=== PATIENT | male | born 1955 | race Caucasian/White ===

== ENCOUNTER → 2018-10-22 13:12 | Outpatient (CLI) | payer OTHER ==
[2011-09-25 09:57] VITALS: BMI 31.3
[~2018-10-22 13:12] MED LIST: CO Q-10200 MG; COLACE100 MG PO; LISINOPRIL10 MG PO; LOW DOSE ASPIRI81 M1 PO; PSYLLIUM; TUMERIC PO; VITAMIN C 500500 MG; [UNRECOGNIZED DRUG - OTHER]; [UNRECOGNIZED DRUG - OTHER]
[2018-10-23 11:05] VITALS: BMI 30.4
== END | disposition home or self-care (01) ==
LOC: D.CT 13:12
DX: R10.84 Generalized abdominal pain (principal)

== ENCOUNTER 2018-10-22 16:14 | Inpatient (IN) | payer OTHER ==
[~2018-10-22] VITALS: Ht 172.7 cm; Wt 90.7 kg
[2018-10-22] MEDS ORDERED: LISINOPRIL10 MG PO (16:33)
[2018-10-22] MEDS ORDERED: LOW DOSE ASPIRI81 M1 PO (16:35)
[2018-10-22 17:14] LABS: BASOPHILS 0.1 % (0-2); EOSINOPHILS 0 % (0-7); HEMOGLOBIN 17.5 g/dL (13.5-17.5); IMMATURE GRANULOCYTES 0.2 % (0-5); LYMPHOCYTES 12.7 % (15-50); MCHC 35.7 g/dL (31.0-37.0); MCV 92.5 fL (80.0-100.0); MEAN PLATELET VOLUME 8.7 fL (7.4-10.4); MONOCYTES 8.4 % (2-11); NEUTROPHILS 78.6 % (40-80); PLATELET COUNT 199 10x3/uL (130-400); RDW 12.1 % (11.5-14.5); WBC 9.1 10x3/uL (4.8-10.8)
[2018-10-22] MEDS ORDERED: [UNRECOGNIZED DRUG - OTHER] (17:22)
[2018-10-22] MEDS ORDERED: TUMERIC PO (17:24)
[2018-10-22] MEDS ORDERED: [UNRECOGNIZED DRUG - OTHER] (17:25)
[2018-10-22] MEDS ORDERED: CO Q-10200 MG (17:27)
[2018-10-22] MEDS ORDERED: VITAMIN C 500500 MG (17:27)
[2018-10-22] MEDS ORDERED: PSYLLIUM (17:29)
[2018-10-22 17:32] LABS: ALBUMIN 4.1 g/dL (3.4-5.0); ALKALINE PHOSPHATASE 59 U/L (46-116); ALT (SGPT) 28 U/L (10-68); BILIRUBIN - TOTAL 1.06 mg/dL (0.2-1.3); CALC OSMOLALITY 275 mosm/kg (275-300); CALCIUM 9.1 mg/dL (8.5-10.1); CARBON DIOXIDE 26.1 mmol/L (21.0-32.0); CHLORIDE - SERUM 99 mmol/L (98-107); CREATININE - SERUM 0.9 mg/dL (0.6-1.3); GLUCOSE 110 mg/dL (74-106); POTASSIUM - SERUM 4.1 mmol/L (3.5-5.1); PROTEIN - SERUM 7.6 g/dL (6.4-8.2); SODIUM 136 mmol/L (136-145); UREA NITROGEN 20 mg/dL (7-18); eGFR NON AFRICAN AMERICAN > 90 mL/min (90-120)
[2018-10-22 19:12] VITALS: BP 126/82; BMI 30.4
[2018-10-23] VITALS: BP 128/75
[2018-10-23 04:00] VITALS: BP 129/78
[2018-10-23 05:04] LABS: APPEARANCE CLEAR (CLEAR); BILIRUBIN NEGATIVE (NEGATIVE); COLOR YELLOW (YELLOW); GLUCOSE NEGATIVE (NEGATIVE); KETONE MODERATE mg/dL (NEGATIVE); NITRITE NEGATIVE (NEGATIVE); PROTEIN NEGATIVE (NEGATIVE); SPECIFIC GRAVITY 1.015 (1.005-1.020); UROBILINOGEN NORMAL (NORMAL)
[2018-10-23 06:15] LABS: BASOPHILS 0.1 % (0-2); CALC OSMOLALITY 279 mosm/kg (275-300); CALCIUM 8.3 mg/dL (8.5-10.1); CARBON DIOXIDE 25.1 mmol/L (21.0-32.0); CHLORIDE - SERUM 102 mmol/L (98-107); CREATININE - SERUM 0.8 mg/dL (0.6-1.3); EOSINOPHILS 0 % (0-7); GLUCOSE 113 mg/dL (74-106); HEMATOCRIT 44.6 % (42.0-54.0); HEMOGLOBIN 15.4 g/dL (13.5-17.5); IMMATURE GRANULOCYTES 0.1 % (0-5); LYMPHOCYTES 13.2 % (15-50); MCH 32.3 pg (26.0-34.0); MCHC 34.5 g/dL (31.0-37.0); MCV 93.5 fL (80.0-100.0); MONOCYTES 9.8 % (2-11); NEUTROPHILS 76.8 % (40-80); PLATELET COUNT 199 10x3/uL (130-400); POTASSIUM - SERUM 3.8 mmol/L (3.5-5.1); RBC 4.77 10x6/uL (4.20-6.10); RDW 12.2 % (11.5-14.5); SODIUM 137 mmol/L (136-145); WBC 7.9 10x3/uL (4.8-10.8); eGFR NON AFRICAN AMERICAN > 90 mL/min (90-120)
[2018-10-23 06:20] LABS: UREA NITROGEN 27 mg/dL (7-18)
[2018-10-23 08:49] VITALS: BP 133/81
[2018-10-23 11:05] VITALS: Ht 172.7 cm; Wt 90.7 kg
[2018-10-23 12:23] VITALS: BP 124/78; BP 142/83
[2018-10-23 17:00] VITALS: BP 128/76
[2018-10-23 19:54] VITALS: BP 113/69
[2018-10-24] VITALS: BP 102/64
[2018-10-24 04:00] VITALS: BP 115/72
[2018-10-24 04:53] LABS: BASOPHILS 0.7 % (0-2); EOSINOPHILS 0.9 % (0-7); HEMATOCRIT 41.2 % (42.0-54.0); HEMOGLOBIN 14.2 g/dL (13.5-17.5); IMMATURE GRANULOCYTES 0.2 % (0-5); LYMPHOCYTES 24.5 % (15-50); MCH 32.7 pg (26.0-34.0); MCHC 34.5 g/dL (31.0-37.0); MCV 94.9 fL (80.0-100.0); MEAN PLATELET VOLUME 8.9 fL (7.4-10.4); MONOCYTES 13.5 % (2-11); NEUTROPHILS 60.2 % (40-80); PLATELET COUNT 155 10x3/uL (130-400); RBC 4.34 10x6/uL (4.20-6.10); RDW 12.1 % (11.5-14.5); WBC 4.5 10x3/uL (4.8-10.8)
[2018-10-24 04:58] LABS: CALC OSMOLALITY 282 mosm/kg (275-300); CALCIUM 7.8 mg/dL (8.5-10.1); CHLORIDE - SERUM 107 mmol/L (98-107); CREATININE - SERUM 0.8 mg/dL (0.6-1.3); GLUCOSE 101 mg/dL (74-106); POTASSIUM - SERUM 3.9 mmol/L (3.5-5.1); SODIUM 140 mmol/L (136-145); UREA NITROGEN 24 mg/dL (7-18); eGFR NON AFRICAN AMERICAN > 90 mL/min (90-120)
[2018-10-24 08:45] VITALS: BP 120/73
[2018-10-24 11:53] VITALS: BP 120/73
[2018-10-24 15:33] VITALS: BP 128/70
[2018-10-24 19:38] VITALS: BP 126/79
[2018-10-25] VITALS: BP 104/65
[2018-10-25 04:00] VITALS: BP 119/74
[2018-10-25 06:15] LABS: BASOPHILS 0.4 % (0-2); EOSINOPHILS 2.5 % (0-7); HEMATOCRIT 39.2 % (42.0-54.0); HEMOGLOBIN 13.8 g/dL (13.5-17.5); IMMATURE GRANULOCYTES 0.2 % (0-5); LYMPHOCYTES 24.2 % (15-50); MCH 32.5 pg (26.0-34.0); MCHC 35.2 g/dL (31.0-37.0); MEAN PLATELET VOLUME 8.9 fL (7.4-10.4); MONOCYTES 14.3 % (2-11); NEUTROPHILS 58.4 % (40-80); PLATELET COUNT 158 10x3/uL (130-400); RBC 4.25 10x6/uL (4.20-6.10); RDW 11.9 % (11.5-14.5); WBC 4.8 10x3/uL (4.8-10.8)
[2018-10-25 06:27] LABS: CALC OSMOLALITY 278 mosm/kg (275-300); CALCIUM 7.3 mg/dL (8.5-10.1); CHLORIDE - SERUM 107 mmol/L (98-107); CREATININE - SERUM 0.7 mg/dL (0.6-1.3); GLUCOSE 85 mg/dL (74-106); POTASSIUM - SERUM 3.7 mmol/L (3.5-5.1); SODIUM 140 mmol/L (136-145); eGFR NON AFRICAN AMERICAN > 90 mL/min (90-120)
[2018-10-25 06:28] LABS: MCV 92.2 fL (80.0-100.0)
[2018-10-25 06:30] LABS: UREA NITROGEN 15 mg/dL (7-18)
[2018-10-25 08:26] VITALS: BP 127/85
[2018-10-25 11:57] VITALS: BP 142/95
[2018-10-25] MEDS ORDERED: COLACE100 MG PO (12:37)
== END 2018-10-25 14:02 | disposition home or self-care (01) | DRG 390 ==
LOC: D.MS 16:14
PROVIDERS: Family Medicine; Internal Medicine Nephrology
DX: K56.609 Unspecified intestinal obstruction, unspecified as to partial versus complete obstruction (principal); I10 Essential (primary) hypertension; E78.5 Hyperlipidemia, unspecified; I25.10 Atherosclerotic heart disease of native coronary artery without angina pectoris

== ENCOUNTER 2019-12-09 07:00 | Inpatient (IN) | payer OTHER ==
[2019-12-09] VITALS (7 sets, daily range): BP systolic 98–154; BP diastolic 69–88; BMI 30.4
[~2019-12-09] VITALS: Ht 172.7 cm; Wt 90.7 kg
[~2019-12-09 07:00] MED LIST changes: -[UNRECOGNIZED DRUG - OTHER]; +[UNRECOGNIZED DRUG - OTHER] PO
[2019-12-09] MEDS ORDERED: CRESTOR10 MG PO (07:11)
[2019-12-09] MEDS ORDERED: FISH OIL 1,0001 CA1 PO (07:12)
--- NOTE | 2019-12-09 07:30 | NUR ---
URINE SPEC COLLECTED, LABELED AT BS AND SENT TO LAB
[2019-12-09 07:41] LABS: APPEARANCE CLEAR (CLEAR); BILIRUBIN NEGATIVE (NEGATIVE); COLOR YELLOW (YELLOW); GLUCOSE NEGATIVE (NEGATIVE); KETONE SMALL mg/dL (NEGATIVE); NITRITE NEGATIVE (NEGATIVE); PROTEIN NEGATIVE (NEGATIVE); UROBILINOGEN NORMAL (NORMAL)
[2019-12-09 07:43] LABS: BASOPHILS 0.1 % (0-2); EOSINOPHILS 0 % (0-7); HEMATOCRIT 49.5 % (42.0-54.0); HEMOGLOBIN 17.7 g/dL (13.5-17.5); IMMATURE GRANULOCYTES 0.2 % (0-5); LYMPHOCYTES 6.5 % (15-50); MCH 33.4 pg (26.0-34.0); MCHC 35.8 g/dL (31.0-37.0); MCV 93.4 fL (80.0-100.0); MONOCYTES 5.4 % (2-11); NEUTROPHILS 87.8 % (40-80); PLATELET COUNT 229 10x3/uL (130-400); RDW 12.3 % (11.5-14.5); WBC 13.1 10x3/uL (4.8-10.8)
[2019-12-09 07:46] LABS: CALC OSMOLALITY 282 mosm/kg (275-300); CALCIUM 9.5 mg/dL (8.5-10.1); CARBON DIOXIDE 25.8 mmol/L (21.0-32.0); CHLORIDE - SERUM 100 mmol/L (98-107); INR 0.95 (0.85-1.17); PROTIME 12.7 SECONDS (11.6-15.0); SODIUM 137 mmol/L (136-145); UREA NITROGEN 27 mg/dL (7-18); eGFR NON AFRICAN AMERICAN 80 mL/min (90-120)
[2019-12-09 07:55] LABS: ALBUMIN 4.3 g/dL (3.4-5.0); ALKALINE PHOSPHATASE 64 U/L (46-116); ALT (SGPT) 55 U/L (10-68); AMYLASE - SERUM 63 U/L (25-115); BILIRUBIN - TOTAL 1.07 mg/dL (0.2-1.3); CREATINE KINASE 99 UL (21-232); LIPASE 76 U/L (73-393); MAGNESIUM - SERUM 2.1 mg/dL (1.8-2.4); PROTEIN - SERUM 8.4 g/dL (6.4-8.2); TROPONIN-I < 0.017 ng/mL (0.000-0.060)
[2019-12-09 07:56] LABS: GLUCOSE 176 mg/dL (74-106); POTASSIUM - SERUM 4.8 mmol/L (3.5-5.1)
--- NOTE | 2019-12-09 11:50 | NUR ---
ATTEMPTED TO CALL REPORT X 1 AT THIS TIME. WAS TOLD TO CALL BACK IN APPROX 10 MINUTES SO THAT NURSE COULD TAKE REPORT.
--- NOTE | 2019-12-09 12:31 | NUR ---
RECEIVED PATIENT FROM ER BY STRETCHER, AMBULATED UP AD OSMANY TO BED IN ROOM. ALERT AND ORIENTED. FAMILY AT BEDSIDE. NO C/O PAIN. NO S/S OF ACUTE DISTRESS NOTED. VITALS STABLE. IV TO LEFT AC, LR INFUSING @ 100ML/HR. SITE PATENT WITHOUT REDNESS OR SWELLING. DENIES ANY NEEDS AT THIS TIME. CALL LIGHT IN REACH. WILL CONTINUE TO MONITOR.
--- NOTE | 2019-12-09 14:19 | MORECARE ---
CASE MANAGEMENT DISCHARGE SUMMARY PATIENT: IKER WALKER UNIT: [id number] ADM DATE: 12/09/19 AGE: 64 : 57 SEX: M ROOM/BED: D.2238 AUTHOR: EUGENIEDOC PHYSICIAN: REFERRING PHYSICIAN: MARY BRANHAM MD DATE OF SERVICE: 12/09/19 Discharge Plan Patient Name: IKER WALKER Facility: [facility]:[place] : 1955 Planned Disposition: Home Anticipated Discharge Date: 12/13/19 Discharge Date: Expected LOS: 4 Initial Reviewer: [email or web address] Initial Review Date: 12/09/2019 Generated: 12/09/19 3:19 pm DCP- Discharge Planning Updated by [email or web address]: Kinga Jimenes on 12/09/19 1:[address] DC PLAN: Return home independently with his . ANTICIPATED DC NEEDS: denied known dc needs at time of assessment in the ER. CM met with patient and his to complete initial dc planning assessment. CM educated patient on the CM role and verbal consent given by patient to complete assessment. CM verified patient's address, phone number, and emergency contact phone numbers. Patient lives at home independently with his . At discharge patient plans to return home with his and feels this is a safe discharge. CM discussed availability of home health, rehab services, and medical equipment. Patient denied known discharge needs at this time. Transportation provider at discharge will be his . CM will continue to follow and will assist as needed with dc plans/needs. Kinga Jimenes RN, [facility] DCPIA - Discharge Planning Initial Assessment Updated by [email or web address]: Kinga Jimenes on 12/09/19 2:11 pm * Is the patient Alert and Oriented? Yes * How many steps to enter\exit or inside your home? None * PCP Dr. Zapata * Pharmacy [facility] on [place] * Preadmission Environment Home with Family * ADLs Independent * Equipment Bedside Commode Cane Rolling Walker Wheelchair * Other Equipment Has equipment from his mother. * List name and contact numbers for known caregivers / representatives who currently or will assist patient after discharge: Ingrid Walker - - [phone] * Verbal permission to speak to the caregivers and representatives has been obtained from the patient. Yes * Community resources currently utilized None * Additional services required to return to the preadmission environment? No * Can the patient safely return to the preadmission environment? Yes * Has this patient been hospitalized within the prior 30 days at any hospital? No Patient Name: IKER WALKER Page [id number] at 1419 All edits/amendments must be made on the electronic document DICTATION DATE: 12/09/191418 GRAPPLE OPERATOR: ARELIS 12/09/191418 RPT#: [id number] DC DATE: STATUS: ADM IN [facility] [address] [place] [address] END OF REPORT
--- NOTE | 2019-12-09 18:13 | NUR ---
ALERT AND ORIENTED. RESTING IN BED. NO C/O PAIN. NO S/S OF ACUTE DISTRESS NOTED. DENIES ANY NEEDS AT THIS TIME. CALL LIGHT IN REACH. WILL CONTINUE TO MONITOR.
--- NOTE | 2019-12-09 18:40 | NUR ---
IV TO LEFT FOREARM INFILTRATED. DISCONTINUED CATHETER TIP INTACT. RESITED IV TO LEFT HAND, 22 GA X1 STICK. GOOD BLOOD RETURN.
[2019-12-10 00:41] VITALS: BP 116/73
[2019-12-10 04:34] VITALS: BP 126/84
[2019-12-10 06:31] LABS: BASOPHILS 0 % (0-2); EOSINOPHILS 0 % (0-7); HEMATOCRIT 45.3 % (42.0-54.0); HEMOGLOBIN 15.8 g/dL (13.5-17.5); IMMATURE GRANULOCYTES 0.2 % (0-5); LYMPHOCYTES 16.7 % (15-50); MCHC 34.9 g/dL (31.0-37.0); MCV 94.6 fL (80.0-100.0); MEAN PLATELET VOLUME 8.8 fL (7.4-10.4); MONOCYTES 15.9 % (2-11); NEUTROPHILS 67.2 % (40-80); RBC 4.79 10x6/uL (4.20-6.10); RDW 12.5 % (11.5-14.5)
[2019-12-10 06:44] LABS: PLATELET COUNT 183 10x3/uL (130-400)
--- NOTE | 2019-12-10 07:05 | NUR ---
ALERT AND ORIENTED, SITTING UP IN CHAIR. NO C/O PAIN. NO S/S OF ACUTE DISTRESS NOTED. BS HYPOACTIVE, ABDOMEN DISTENDED AND FIRM. IV TO LEFT HAND, D5 LR INFUSING @ 100ML/HR. SITE PATENT WITHOUT REDNESS OR SWELLING. DENIES ANY NEEDS AT THIS TIME. CALL LIGHT IN REACH. WILL CONTINUE TO MONITOR.
[2019-12-10 07:07] LABS: ALBUMIN 3.4 g/dL (3.4-5.0); ALKALINE PHOSPHATASE 45 U/L (46-116); BILIRUBIN - TOTAL 0.96 mg/dL (0.2-1.3); CALC OSMOLALITY 283 mosm/kg (275-300); CALCIUM 8.5 mg/dL (8.5-10.1); CARBON DIOXIDE 26.5 mmol/L (21.0-32.0); CHLORIDE - SERUM 103 mmol/L (98-107); GLUCOSE 138 mg/dL (74-106); PROTEIN - SERUM 6.7 g/dL (6.4-8.2); SODIUM 139 mmol/L (136-145); UREA NITROGEN 25 mg/dL (7-18); eGFR NON AFRICAN AMERICAN 80 mL/min (90-120)
[2019-12-10 07:09] LABS: ALT (SGPT) 36 U/L (10-68)
[2019-12-10 08:53] VITALS: BP 127/64
[2019-12-10 12:27] VITALS: BMI 30.4
--- NOTE | 2019-12-10 13:00 | NUR ---
NG TUBE PLACED TO RIGHT NARE, L/I/S. KUB ORDERED TO CONFIRM PLACEMENT. GREEN CONTENTS IN SUCTION CANISTER. 1150ML IN CANISTER. CHANGED TO SECOND CANISTER.
[2019-12-10 13:01] VITALS: BP 127/57
--- NOTE | 2019-12-10 13:26 | NUR ---
I have reviewed this patient and I concur with the Shift Assessment completed by the Licensed Practical Nurse today this shift.
[2019-12-10 17:02] VITALS: BP 130/67
--- NOTE | 2019-12-10 18:37 | NUR ---
ALERT AND ORIENTED, RESTING IN BED. FAMILY AT BEDSIDE. DENIES ANY NEEDS AT THIS TIME. CALL LIGHT IN REACH. WILL CONTINUE TO MONITOR.
[2019-12-10 20:00] VITALS: BP 118/65
[2019-12-10 22:23] VITALS: Ht 172.7 cm; Wt 90.7 kg
[2019-12-11 04:00] VITALS: BP 122/65
[2019-12-11 07:17] LABS: BASOPHILS 0.3 % (0-2); EOSINOPHILS 0.3 % (0-7); HEMOGLOBIN 14.8 g/dL (13.5-17.5); LYMPHOCYTES 21.9 % (15-50); MCH 32.9 pg (26.0-34.0); MCHC 34.4 g/dL (31.0-37.0); MCV 95.6 fL (80.0-100.0); MEAN PLATELET VOLUME 8.9 fL (7.4-10.4); MONOCYTES 14.7 % (2-11); NEUTROPHILS 62.8 % (40-80); PLATELET COUNT 175 10x3/uL (130-400); RDW 12.4 % (11.5-14.5); WBC 5.8 10x3/uL (4.8-10.8)
[2019-12-11 07:38] LABS: ALBUMIN 2.9 g/dL (3.4-5.0); ALKALINE PHOSPHATASE 41 U/L (30-120); ALT (SGPT) 30 U/L (10-68); BILIRUBIN - TOTAL 0.84 mg/dL (0.2-1.3); CALC OSMOLALITY 280 mosm/kg (275-300); CALCIUM 7.7 mg/dL (8.5-10.1); CARBON DIOXIDE 24.3 mmol/L (21.0-32.0); CHLORIDE - SERUM 106 mmol/L (98-107); CREATININE - SERUM 0.9 mg/dL (0.6-1.3); GLUCOSE 111 mg/dL (74-106); MAGNESIUM - SERUM 1.8 mg/dL (1.8-2.4); PHOSPHOROUS 2.8 mg/dL (2.5-4.9); POTASSIUM - SERUM 3.8 mmol/L (3.5-5.1); PROTEIN - SERUM 6.1 g/dL (6.4-8.2); SODIUM 138 mmol/L (136-145); UREA NITROGEN 23 mg/dL (7-18); eGFR NON AFRICAN AMERICAN > 90 mL/min (90-120)
--- NOTE | 2019-12-11 09:14 | NUR ---
PT ALERT X 4. NG TUBE TO RIGHT NARE, CLAMPED FOR IMAGING. BREATH SOUNDS CLEAR BILAT. ABDOMEN DISTENDED AND FIRM, BOWEL SOUNDS ACTIVE TO ALL LIANG. IV TO LEFT HAND PATENT, DRESSING CDI. PT REPORTING NO PAIN AT THIS TIME. BED LOW, CALL LIGHT IN REACH. NO OTHER NEEDS AT THIS TIME.
[2019-12-11 10:05] VITALS: BP 141/75
[2019-12-11 12:39] VITALS: BP 146/83
[2019-12-11 16:33] VITALS: BP 152/85
[2019-12-11 19:30] VITALS: BP 142/70
--- NOTE | 2019-12-11 22:00 | NUR ---
DIET ADVANCED TOLERATED. PT EATING CHICKEN NOODLE SOUP. TOLERATED WELL. ORDERED REGULAR DIET WITH EGGS AND YOGURT FOR BREAKFAST. NO OTHER NEEDS. WILL CONTINUE TO MONITOR.
[2019-12-12 00:30] VITALS: BP 108/66
[2019-12-12 04:30] VITALS: BP 129/89
[2019-12-12 06:35] LABS: BASOPHILS 0.2 % (0-2); EOSINOPHILS 1.6 % (0-7); HEMATOCRIT 42.6 % (42.0-54.0); HEMOGLOBIN 14.7 g/dL (13.5-17.5); IMMATURE GRANULOCYTES 0.3 % (0-5); LYMPHOCYTES 24.9 % (15-50); MCH 32.6 pg (26.0-34.0); MCHC 34.5 g/dL (31.0-37.0); MCV 94.5 fL (80.0-100.0); MEAN PLATELET VOLUME 8.5 fL (7.4-10.4); MONOCYTES 11.1 % (2-11); NEUTROPHILS 61.9 % (40-80); PLATELET COUNT 160 10x3/uL (130-400); RBC 4.51 10x6/uL (4.20-6.10); RDW 12.1 % (11.5-14.5); WBC 6.2 10x3/uL (4.8-10.8)
[2019-12-12 06:48] LABS: ALBUMIN 2.8 g/dL (3.4-5.0); ALKALINE PHOSPHATASE 41 U/L (30-120); ALT (SGPT) 25 U/L (10-68); BILIRUBIN - TOTAL 0.91 mg/dL (0.2-1.3); CALC OSMOLALITY 279 mosm/kg (275-300); CALCIUM 7.8 mg/dL (8.5-10.1); CARBON DIOXIDE 28.5 mmol/L (21.0-32.0); CHLORIDE - SERUM 106 mmol/L (98-107); CREATININE - SERUM 0.9 mg/dL (0.6-1.3); GLUCOSE 94 mg/dL (74-106); POTASSIUM - SERUM 3.7 mmol/L (3.5-5.1); SODIUM 140 mmol/L (136-145); eGFR NON AFRICAN AMERICAN > 90 mL/min (90-120)
[2019-12-12 06:49] LABS: UREA NITROGEN 16 mg/dL (7-18)
[2019-12-12 08:16] VITALS: BP 122/80
--- NOTE | 2019-12-12 09:29 | NUR ---
PT ALERT X 4. BREATH SOUNDS CLEAR BILAT. IV TO LEFT HAND, PATENT, DRESSING CDI. PT REPORTING NO PAIN AT THIS TIME. BED LOW, CALL LIGHT IN REACH. NO OTHER NEEDS AT THIS TIME.
[2019-12-12 13:40] VITALS: BP 126/90
--- NOTE | 2019-12-12 16:05 | NUR ---
DISCHARGE PAPERWORK SIGNED, ALL QUESTIONS ANSWERED. IV TO LEFT HAND DC'D, TIP INTACT. PT REQUESTED TO AMBULATE OUT.
--- NOTE | 2019-12-13 09:08 | MORECARE ---
CASE MANAGEMENT DISCHARGE SUMMARY PATIENT: IKER WALKER UNIT: [id number] ADM DATE: 12/09/19 AGE: 64 : 57 SEX: M ROOM/BED: D.2238 AUTHOR: EUGENIEDOC PHYSICIAN: REFERRING PHYSICIAN: MARY BRANHAM MD DATE OF SERVICE: 12/13/19 Discharge Plan Patient Name: IKER WALKER Facility: [facility]:[place] : 1955 Planned Disposition: Home Anticipated Discharge Date: 12/13/19 Discharge Date: 12/12/2019 Expected LOS: 4 Initial Reviewer: [email or web address] Initial Review Date: 12/09/2019 Generated: 12/13/19 10:08 am DCP- Discharge Planning Updated by [email or web address]: Kinga Jimenes on 12/09/19 1:[address] DC PLAN: Return home independently with his . ANTICIPATED DC NEEDS: denied known dc needs at time of assessment in the ER. CM met with patient and his to complete initial dc planning assessment. CM educated patient on the CM role and verbal consent given by patient to complete assessment. CM verified patient's address, phone number, and emergency contact phone numbers. Patient lives at home independently with his . At discharge patient plans to return home with his and feels this is a safe discharge. CM discussed availability of home health, rehab services, and medical equipment. Patient denied known discharge needs at this time. Transportation provider at discharge will be his . CM will continue to follow and will assist as needed with dc plans/needs. Kinga Jimenes RN, [facility] DCPIA - Discharge Planning Initial Assessment Updated by [id number]: Kinga Jimenes on 12/09/19 2:11 pm * Is the patient Alert and Oriented? Yes * How many steps to enter\exit or inside your home? None * PCP Dr. Zapata * Pharmacy [facility] on [place] * Preadmission Environment Home with Family * ADLs Independent * Equipment Bedside Commode Cane Rolling Walker Wheelchair * Other Equipment Has equipment from his mother. * List name and contact numbers for known caregivers / representatives who currently or will assist patient after discharge: Ingrid Walker - - [phone] * Verbal permission to speak to the caregivers and representatives has been obtained from the patient. Yes * Community resources currently utilized None * Additional services required to return to the preadmission environment? No * Can the patient safely return to the preadmission environment? Yes * Has this patient been hospitalized within the prior 30 days at any hospital? No Last DP export: 12/09/19 1:19 p Patient Name: IKER AWLKER Page [id number] at 0908 All edits/amendments must be made on the electronic document DICTATION DATE: 12/13/19907 TOP TRIMMER: DM 12/13/19907 RPT#: [id number] DC DATE:12/12/19 STATUS: DIS IN [facility] [address] [place] [address] END OF REPORT
== END 2019-12-12 16:06 | disposition home or self-care (01) | DRG 390 ==
LOC: D.ER 07:00 → D.MS 11:20
PROVIDERS: Emergency Medicine; Family Medicine; Surgery; ADMIT Family Medicine; ATTEND Family Medicine
DX: K56.50 Intestinal adhesions [bands], unspecified as to partial versus complete obstruction (principal); K52.9 Noninfective gastroenteritis and colitis, unspecified; K56.7 Ileus, unspecified; E86.0 Dehydration; I10 Essential (primary) hypertension; I25.10 Atherosclerotic heart disease of native coronary artery without angina pectoris; E78.5 Hyperlipidemia, unspecified; K40.90 Unilateral inguinal hernia, without obstruction or gangrene, not specified as recurrent

== ENCOUNTER 2020-07-22 09:37 | Inpatient (IN) | payer OTHER ==
[2020-07-22] VITALS (8 sets, daily range): BP systolic 139–169; BP diastolic 69–96; BMI 30.4
[~2020-07-22] VITALS: Ht 172.7 cm; Wt 90.7 kg
[~2020-07-22 09:37] MED LIST changes: +CRESTOR10 MG PO; +FISH OIL 1,0001 CA1 PO
--- NOTE | 2020-07-22 09:45 | NUR ---
PT AMBULATED TO RESTROOM INDEPENDENTLY AND PROVIDED URINE SAMPLE.
[2020-07-22 09:59] LABS: BASOPHILS 0.1 % (0-2); EOSINOPHILS 0 % (0-7); HEMOGLOBIN 17.2 g/dL (13.5-17.5); IMMATURE GRANULOCYTES 0.2 % (0-5); LYMPHOCYTES 3.9 % (15-50); MCH 33.5 pg (26.0-34.0); MCHC 35.1 g/dL (31.0-37.0); MCV 95.5 fL (80.0-100.0); MEAN PLATELET VOLUME 8.9 fL (7.4-10.4); MONOCYTES 7.3 % (2-11); NEUTROPHILS 88.5 % (40-80); RBC 5.13 10x6/uL (4.20-6.10); RDW 12.6 % (11.5-14.5); WBC 16.7 10x3/uL (4.8-10.8)
[2020-07-22 10:05] LABS: PLATELET COUNT 205 10x3/uL (130-400)
[2020-07-22 10:10] LABS: BILIRUBIN NEGATIVE (NEGATIVE); KETONE SMALL mg/dL (NEGATIVE); NITRITE NEGATIVE (NEGATIVE); UROBILINOGEN NORMAL (NORMAL)
[2020-07-22 10:11] LABS: BACTERIA FEW /hpf (NONE SEEN); GRANULAR CAST OCC /lpf (NONE SEEN); WHITE CELLS - URINE 0-5 /hpf (0-5)
[2020-07-22 10:56] LABS: CALC OSMOLALITY 285 mosm/kg (275-300); CALCIUM 9.4 mg/dL (8.5-10.1); CARBON DIOXIDE 22.4 mmol/L (21.0-32.0); CHLORIDE - SERUM 103 mmol/L (98-107); CREATININE - SERUM 1.2 mg/dL (0.6-1.3); POTASSIUM - SERUM 4.3 mmol/L (3.5-5.1); SODIUM 140 mmol/L (136-145); UREA NITROGEN 21 mg/dL (7-18); eGFR NON AFRICAN AMERICAN 65 mL/min (90-120)
[2020-07-22 10:57] LABS: GLUCOSE 162 mg/dL (74-106)
[2020-07-22 11:05] LABS: ALBUMIN 4.5 g/dL (3.4-5.0); ALKALINE PHOSPHATASE 63 U/L (30-120); ALT (SGPT) 45 U/L (10-68); AMYLASE - SERUM 66 U/L (25-115); BILIRUBIN - TOTAL 0.92 mg/dL (0.2-1.3); LIPASE 56 U/L (73-393); PROTEIN - SERUM 7.9 g/dL (6.4-8.2)
[2020-07-22 11:08] LABS: TROPONIN-I < 0.017 ng/mL (0.000-0.060)
--- NOTE | 2020-07-22 12:40 | NUR ---
ADVANCED NG TUBE APPROXIMATELY 4 CM PER EDP MERCED.
--- NOTE | 2020-07-22 14:00 | NUR ---
PT SUCTION CANNISTER EMPTIED APPROXIMATELY 1200 CC YELLOW/BROWN GASTRIC CONTENTS NOTED.
--- NOTE | 2020-07-22 15:24 | NUR ---
pt laying in bed. no distress noted. color wnl for race. respirations are even and unlabored. will continue to monitor.
[2020-07-22 18:09] LABS: BASOPHILS 0.1 % (0-2); EOSINOPHILS 0 % (0-7); HEMATOCRIT 46.5 % (42.0-54.0); HEMOGLOBIN 16.1 g/dL (13.5-17.5); IMMATURE GRANULOCYTES 0.2 % (0-5); LYMPHOCYTES 6.5 % (15-50); MCH 33.5 pg (26.0-34.0); MCHC 34.6 g/dL (31.0-37.0); MCV 96.9 fL (80.0-100.0); MEAN PLATELET VOLUME 8.9 fL (7.4-10.4); MONOCYTES 9.9 % (2-11); NEUTROPHILS 83.3 % (40-80); PLATELET COUNT 197 10x3/uL (130-400)
[2020-07-22 18:10] LABS: WBC 11.1 10x3/uL (4.8-10.8)
[2020-07-22 18:19] LABS: ANION GAP 16.5 mmol/L (8-16); CARBON DIOXIDE 24.6 mmol/L (21.0-32.0); CREATININE - SERUM 1.3 mg/dL (0.6-1.3); POTASSIUM - SERUM 4.1 mmol/L (3.5-5.1)
[2020-07-22 18:25] LABS: ALBUMIN 3.9 g/dL (3.4-5.0); BILIRUBIN - TOTAL 1.17 mg/dL (0.2-1.3); PROTEIN - SERUM 7.3 g/dL (6.4-8.2)
--- NOTE | 2020-07-22 19:00 | NUR ---
PT ARRIVED ON UNIT VIA STRETCHER ESCORTED BY ER STAFF AND SPOUSE. NG TUBE TO LEFT NARE CONNECTED TO LIS. IV TO RIGHT HAND PATENT WITH NS INFUSING AT 100 ML/HR.
--- NOTE | 2020-07-22 23:00 | NUR ---
ADMISSION ASSESSMENT AND HISTORY COMPLETE. MED REC RECONCILLIATION COMPLETE.
[2020-07-23] VITALS: BP 127/79
[2020-07-23 04:00] VITALS: BP 135/81
[2020-07-23 06:31] LABS: BASOPHILS 0 % (0-2); EOSINOPHILS 0 % (0-7); HEMATOCRIT 45.1 % (42.0-54.0); HEMOGLOBIN 15.3 g/dL (13.5-17.5); LYMPHOCYTES 16.6 % (15-50); MCHC 33.9 g/dL (31.0-37.0); MCV 97.4 fL (80.0-100.0); MEAN PLATELET VOLUME 9.1 fL (7.4-10.4); MONOCYTES 15.2 % (2-11); NEUTROPHILS 68.2 % (40-80); PLATELET COUNT 215 10x3/uL (130-400); RBC 4.63 10x6/uL (4.20-6.10); RDW 13.4 % (11.5-14.5)
[2020-07-23 06:32] LABS: WBC 5.6 10x3/uL (4.8-10.8)
[2020-07-23 06:48] LABS: APTT 24.9 SECONDS (22.8-39.4); INR 1.08 (0.85-1.17)
[2020-07-23 06:56] LABS: ALBUMIN 3.6 g/dL (3.4-5.0); BILIRUBIN - TOTAL 1.14 mg/dL (0.2-1.3); CALCIUM 8.4 mg/dL (8.5-10.1); CARBON DIOXIDE 22.8 mmol/L (21.0-32.0); CREATININE - SERUM 1.1 mg/dL (0.6-1.3); POTASSIUM - SERUM 3.8 mmol/L (3.5-5.1); PROTEIN - SERUM 6.8 g/dL (6.4-8.2)
--- NOTE | 2020-07-23 09:00 | NUR ---
ALERT AND ORIENTED X4 WITH NG TUBE TO NARE TO LOW INTERMITTANT SUCTION WITH BROWN SECRETIONS NOTED. STATED IS PASSING FLATULANCE AND DENIES ANY ABDOMINAL PAIN AT THIS TIME WITH BOWEL SOUNDS HYPOACTIVE X4 ANTERIOR. AMBULATES IN [place] AT TIMES. ENCOURAGED TO USE CALL LIGHT FOR ASSIST.
[2020-07-23 09:17] VITALS: BP 139/78
[2020-07-23 13:08] VITALS: BP 127/78
[2020-07-23 17:29] VITALS: BP 161/69
--- NOTE | 2020-07-23 19:00 | NUR ---
BEDSIDE REPORT RECEIVED AND CARE OF PT ASSUMED. PT LYING IN SUPINE POSITION. NG TUBE TO LEFT NARE PATENT WITH GREENISH BROWN LIQUID IN COLLECTION CANNISTER. IV TO LEFT HAND PATENT WITH NS INFUSING AT 100 ML/HR. WILL MONITOR FOR NEEDS.
[2020-07-23 20:00] VITALS: BP 124/69
--- NOTE | 2020-07-23 20:26 | NUR ---
HS MEDICATIONS GIVEN. PT DENIES PAIN OR NEED FOR PAIN MED AT THIS TIME.
[2020-07-24] VITALS: BP 152/69
[2020-07-24 04:00] VITALS: BP 133/76
--- NOTE | 2020-07-24 08:35 | NUR ---
PT REQUESTED AND RECIEVED TO BE SALINE LOCKED AND THE NG TUBE CLAMPED. HE IS WALKING AROUND THE UNIT. NINGTM
[2020-07-24 09:27] VITALS: BP 108/71
[2020-07-24 10:17] VITALS: Ht 172.7 cm; Wt 90.7 kg
[2020-07-24 13:48] LABS: BASOPHILS 0.3 % (0-2); EOSINOPHILS 0.8 % (0-7); HEMATOCRIT 41.8 % (42.0-54.0); HEMOGLOBIN 13.9 g/dL (13.5-17.5); IMMATURE GRANULOCYTES 0.3 % (0-5); LYMPHOCYTES 19.7 % (15-50); MCH 32.6 pg (26.0-34.0); MCHC 33.3 g/dL (31.0-37.0); MCV 98.1 fL (80.0-100.0); MEAN PLATELET VOLUME 8.4 fL (7.4-10.4); MONOCYTES 10.4 % (2-11); NEUTROPHILS 68.5 % (40-80); RBC 4.26 10x6/uL (4.20-6.10); RDW 12.6 % (11.5-14.5); WBC 6.4 10x3/uL (4.8-10.8)
[2020-07-24 13:50] LABS: PLATELET COUNT 149 10x3/uL (130-400)
[2020-07-24 14:06] LABS: CALC OSMOLALITY 282 mosm/kg (275-300); CALCIUM 7.6 mg/dL (8.5-10.1); CARBON DIOXIDE 24.2 mmol/L (21.0-32.0); CHLORIDE - SERUM 106 mmol/L (98-107); CREATININE - SERUM 0.9 mg/dL (0.6-1.3); GLUCOSE 83 mg/dL (74-106); POTASSIUM - SERUM 3.8 mmol/L (3.5-5.1); SODIUM 139 mmol/L (136-145); UREA NITROGEN 28 mg/dL (7-18); eGFR NON AFRICAN AMERICAN 90 mL/min (90-120)
--- NOTE | 2020-07-24 16:10 | NUR ---
THO AND PT WALKING LAPS AROUND THE UNIT. NO NEEDS AT THIS TIME. CL IN REACH. WCTM
[2020-07-24 17:48] VITALS: BP 140/85
--- NOTE | 2020-07-24 19:00 | NUR ---
BEDSIDE REPORT RECEIVED AND CARE OF PT ASSUMED. PT LYING IN LOW REDMOND'S POSITION WATCHING TV. IV TO RIGHT HAND PATENT WITH NS INFUSING AT 100 ML/HR. NG TUBE TO LEFT NARE CLAMPED AT THIS TIME. DIET ADVANCED TO CLEAR LIQUIDS AND PT TOLERATING WITH NO NAUSEA OR ABDOMINAL PAIN. WILL MONITOR FOR NEEDS.
--- NOTE | 2020-07-24 19:52 | NUR ---
HS MEDICATIONS GIVEN. WILL CONTINUE TO MONITOR FOR NEEDS.
--- NOTE | 2020-07-24 20:00 | NUR ---
MOJGAN SPARKS GIVEN: X2 JELLO AND LEMON NINILCHIK SODA.
[2020-07-24 20:28] VITALS: BP 144/90
[2020-07-25 00:24] VITALS: BP 141/79
[2020-07-25 04:51] VITALS: BP 159/75
--- NOTE | 2020-07-25 06:58 | NUR ---
PAGED DR DICKENS PER PT REQUEST TO HAVE NG TUBE REMOVED. OK PER . PT TOLERATED REMOVAL.
[2020-07-25 08:41] VITALS: BP 145/83
--- NOTE | 2020-07-25 12:21 | NUR ---
PATIENT UP IN CHAIR. DENIES NEEDS OR PAIN. WILL CONTINUE TO MONITOR.
[2020-07-25 13:12] VITALS: BP 149/83
[2020-07-25 15:06] LABS: BASOPHILS 0.3 % (0-2); EOSINOPHILS 0.6 % (0-7); HEMATOCRIT 39.2 % (42.0-54.0); HEMOGLOBIN 13.5 g/dL (13.5-17.5); IMMATURE GRANULOCYTES 0.2 % (0-5); LYMPHOCYTES 18.8 % (15-50); MCH 32.8 pg (26.0-34.0); MCHC 34.4 g/dL (31.0-37.0); MEAN PLATELET VOLUME 8.6 fL (7.4-10.4); MONOCYTES 14.7 % (2-11); NEUTROPHILS 65.4 % (40-80); PLATELET COUNT 156 10x3/uL (130-400); RBC 4.11 10x6/uL (4.20-6.10); RDW 12.3 % (11.5-14.5); WBC 6.3 10x3/uL (4.8-10.8)
[2020-07-25 15:07] LABS: MCV 95.4 fL (80.0-100.0)
[2020-07-25 15:24] LABS: CALC OSMOLALITY 278 mosm/kg (275-300); CALCIUM 7.6 mg/dL (8.5-10.1); CARBON DIOXIDE 25.7 mmol/L (21.0-32.0); CHLORIDE - SERUM 105 mmol/L (98-107); GLUCOSE 96 mg/dL (74-106); POTASSIUM - SERUM 3.5 mmol/L (3.5-5.1); SODIUM 140 mmol/L (136-145); eGFR NON AFRICAN AMERICAN 80 mL/min (90-120)
[2020-07-25 15:31] LABS: UREA NITROGEN 12 mg/dL (7-18)
[2020-07-25 16:24] VITALS: BP 131/85
--- NOTE | 2020-07-25 18:06 | NUR ---
DISCHARGE TEACHING COMPLETE. NO FURTHER QUESTIONS. IV CATH REMOVED, CATH TIP INTACT. BELONGINGS GATHERED. LEFT UNIT VIA WHEELCHAIR TO HOME.
== END 2020-07-25 18:07 | disposition home or self-care (01) | DRG 389 ==
LOC: D.ER 09:37 → D.MS 11:23
PROVIDERS: Family Medicine; ADMIT Emergency Medicine; ATTEND Emergency Medicine
PROC: 0D9670Z Drainage of Stomach with Drainage Device, Via Natural or Artificial Opening (ICD-10-PCS; principal; 2020-07-22)
DX: K56.609 Unspecified intestinal obstruction, unspecified as to partial versus complete obstruction (principal); R18.8 Other ascites; E86.0 Dehydration; K76.0 Fatty (change of) liver, not elsewhere classified; I25.10 Atherosclerotic heart disease of native coronary artery without angina pectoris; I10 Essential (primary) hypertension; E78.5 Hyperlipidemia, unspecified; K21.9 Gastro-esophageal reflux disease without esophagitis